=== PATIENT | male | born 1985 | race Two or more races ===

== ENCOUNTER 2020-05-14 09:42 | Day surgery (SDC) | payer OTHER ==
[2020-05-14] VITALS (8 sets, daily range): BP systolic 93–110; BP diastolic 60–78
[~2020-05-14] VITALS: Ht 177.8 cm; Wt 74.4 kg
--- NOTE | 2020-05-14 07:19 | Anethesia Preoperative Eval ---
Anesthesia Pre-op PMH/ROS General Date of Evaluation: May 14, 2020 Time of Evaluation: 07:14 Anesthesiologist: tree ASA Score: ASA 3 Mallampati Score Class I : Soft palate, uvula, fauces, pillars visible Class II: Soft palate, uvula, fauces visible Class III: Soft palate, base of uvula visible Class IV: Only hard plate visible Mallampati Classification: Class II Surgeon: cl Diagnosis: abdominal pain Surgical Procedure: colonoscopy Anesthesia History: none Social History: smoking - nonsmoker Family History: no anesthesia problems Allergies: Coded Allergies: No Known Allergies (Unverified , 05/14/20) Medications: see eMAR Patient NPO?: Yes Past Medical History Cardiovascular: Reports: other - heart murmur Pulmonary: Reports: asthma Gastrointestinal/Genitourinary: Reports: GERD, other - abdominal pain, gas and bloating Anesthesia Pre-op Phys. Exam Physician Exam Last Vital Signs Date Time Temp Pulse Resp B/P (MAP) Pulse Ox O2 Delivery O2 Flow Rate FiO2 05/14/20 10:05 Room Air 05/14/20 10:04 97.3 61 18 109/63 100 Constitutional: NAD Neurologic: CN 2-12 intact Cardiovascular: RRR Respiratory: CTA Gastrointestinal: S/NT/ND Airway Exam Mallampati Score: Class II MO: full Neck: flexible TMD: 2fb ROM: full Anesthesia Pre-op A/P Labs Microbiology Date/Time Source Procedure Growth Status 05/12/20 12:05 Nasopharynx Coronavirus COVID-19 PCR ([facility]) - Final Complete Risk Assessment & Plan Assessment: asa3 Plan: mac Status Change Before Surgery: No Pre-Antibiotics Drug: Rashmi Sal MD May 14, 2020 07:19
[~2020-05-14 09:42] MED LIST: Atropine Inj 1mg/10ml Syr IV PRN; DiphenhydrAMINE 50mg/ml Inj IVP PRN; LR 1000ml 1,000 ML IVLG SCH; Midazolam 2mg/2ml Inj IVP PRN; fentaNYL 100 mcg/2 mL IV PRN
[2020-05-14] MEDS ORDERED: Lidocaine 1% MPF 10mg/ml 5ml ONE (11:00)
[2020-05-14] MEDS ORDERED: LR 1000ml ONE (11:00)
--- NOTE | 2020-05-14 11:05 | Short Stay Surgery H&P ---
History of Present Illness History of Present Illness Chief Complaint see H&P typed HPI Jameson Matute is a 35 year old male who was admitted on for Abdominal Pain , Gas & Boating Patient History Allergies: Coded Allergies: No Known Allergies (Unverified , 05/14/20) Medication History No Active Prescriptions or Reported Meds Physical Exam Vital Signs Last Vital Signs Date Time Temp Pulse Resp B/P (MAP) Pulse Ox O2 Delivery O2 Flow Rate FiO2 05/14/20 10:05 Room Air 05/14/20 10:04 97.3 61 18 109/63 100 Plan Attestation Are the patient's medical conditions optimized for surgery? Ricardo Posada MD May 14, 2020 11:05
--- NOTE | 2020-05-14 11:06 | Pre-Procedure Note/Attestation ---
Pre-Procedure Note/Attestation Complete Prior to Procedure Planned Procedure: not applicable Procedure Narrative: colon Indications for Procedure Pre-Operative Diagnosis: abnormal CT Attestation I attest that I discussed the nature of the procedure; its benefits; risks and complications; and alternatives (and the risks and benefits of such alternatives ), prior to the procedure, with the patient (or the patient's legal veterans employment representative). I attest that, if there was a reasonable possibility of needing a blood transfusion, the patient (or the patient's legal veterans employment representative) was given the [facility] standardized written summary, pursuant to the [employer] Blood Safety Act ([place] Health and Safety Code # 1645, as amended). I attest that I re-evaluated the patient just prior to the surgery and that there has been no change in the patient's H&P, except as documented below: Ricardo Posada MD May 14, 2020 11:06
--- NOTE | 2020-05-14 12:33 | Immediate Post-Op Evaluation ---
Immediate Post-Op Evalulation Immediate Post-Op Evalulation Procedure: colonoscopy w/ bx Date of Evaluation: May 14, 2020 Time of Evaluation: 11:48 IV Fluids: 350ml lr Blood Products: none Estimated Blood Loss: negligible Blood Pressure Systolic: 110 Blood Pressure Diastolic: 71 Pulse Rate: 62 Respiratory Rate: 18 O2 Sat by Pulse Oximetry: 100 Temperature (Fahrenheit): 97.5 Pain Score (1-10): 0 Nausea: No Vomiting: No Complications none Patient Status: awake, reacts, patent Hydration Status: adequate Drug: Rashmi Sal MD May 14, 2020 12:33
--- NOTE | 2020-05-14 12:35 | 48 Hour Post Anesthesia Eval ---
Post Anesthesia Evaluation Procedure: colonoscopy w/ bx Date of Evaluation: May 14, 2020 Time of Evaluation: 11:50 Blood Pressure Systolic: 109 0: 78 Pulse Rate: 75 Respiratory Rate: 18 Temperature (Fahrenheit): 97.5 O2 Sat by Pulse Oximetry: 100 Airway: patent Nausea: No Vomiting: No Pain Intensity: 0 Hydration Status: adequate Cardiopulmonary Status: stable Mental Status/LOC: patient returned to baseline Post-Anesthesia Complications: none Follow-up care needed: N/A Rashmi Grimaldo MD May 14, 2020 12:35
--- NOTE | 2020-05-16 21:53 | Endoscopy Procedure Note ---
Endoscopy Procedure Note General Indication for Procedure: abnormal CT Procedures Performed: colonoscopy Operative Findings/Diagnosis: tics Anesthesia Anesthesiologist: see report Anesthesia: MAC Inserted Devices Implant(s) used?: No Quality Quality of Bowel Preparation: Good Was there any complications?: No GI Core Measures 50 yrs or older w/o bx or poly: Not Applicable 10yrs. F/U recommended: Not Applicable If not recommended, why?: Ricardo Posada MD May 16, 2020 21:52
--- NOTE | 2020-05-16 21:55 | Brief Operative Note ---
Immediate Post Operative Note Operative Note Chief Complaint: abnormal CT Pre-op Diagnosis: abnormal CT Procedure: colon Bx Post-op Diagnosis: diverticulosis Surgeon: cl Anesthesiologist: see report Anesthesia: MAC Specimen: yes Complications: none Condition: stable Fluids: per anesthesia Drains: none Implant(s) used?: No Ricardo Posada MD May 16, 2020 21:55
--- NOTE | 2020-05-18 19:15 | Operative Note - Dictated ---
DATE OF OPERATION: 05/14/2020 GASTROENTEROLOGY PROCEDURE REPORT PROCEDURE: Colonoscopy with biopsy. SURGEON: Ricardo Posada MD ANESTHESIA: Please see the separate anesthesiologist notes for details. PRE-ENDOSCOPIC DIAGNOSES: 1. Abnormal CT scan with suggestion of possible inflammatory bowel disease. 2. Abdominal pain on the right side. POST-ENDOSCOPIC DIAGNOSES: 1. Mild sigmoid diverticulosis. 2. Normal terminal ileum and colonic mucosal lining. 3. Status post random biopsies of the terminal ileum, cecum, right colon, and left colon. DESCRIPTION OF PROCEDURE: The procedure its risks, indications, alternatives, and possible complications including but not limited to bleeding, infection, perforation, , and anesthesia complications were explained to the patient and informed consent was obtained. The patient was then sedated in the left lateral decubitus position and a rectal exam was done. The colonoscope was then introduced into the rectum and advanced to 15 cm into the terminal ileum without difficulty. The colonoscope was then gradually withdrawn and mucosa examined carefully. Examination of the terminal ileum did not reveal any abnormalities. The cecum was likewise normal. The mucosa of the rest of the colon were unremarkable except for some mild sigmoid diverticulosis. Retroflexed view of the rectum was unremarkable. The colonoscope was removed. However, before examination of the terminal ileal mucosa, the cecum and the colonic mucosa did not reveal any abnormalities except for some incidental sigmoid diverticulosis. Random biopsies of the terminal ileum, cecum, right colon, and left colon were sent to pathology for review. The colonoscope was removed. The patient was sent to recovery in good condition. COMPLICATIONS: None. ASSESSMENT: There were no abnormalities on the examination that corresponded to the CT finding that could explain the patient's abdominal pain. However, biopsies will be evaluated to rule out microscopic evidence of disease. RECOMMENDATIONS: 1. Follow up biopsy results. 2. Resume oral diet. 3. Outpatient followup. Thank you for asking me to participate in the care of this patient. Ricardo Posada M.D. DR: TIMBO JOB#: [id number] CC: Ricardo Posada M.D.; Fax#: [phone] SHAHEED BARRIENTOS M.D. ; FAX#: [phone]
== END 2020-05-14 12:30 | disposition home or self-care (01) ==
LOC: GAS 09:42
DX: K57.30 Diverticulosis of large intestine without perforation or abscess without bleeding (principal); K21.9 Gastro-esophageal reflux disease without esophagitis
CPT/HCPCS: 45380; 94003; J2704; J7120; 94150